=== PATIENT | male | born 1960 | race Two or more races ===

== ENCOUNTER 2018-11-13 21:26 | Emergency (ER) | payer OTHER ==
[~2018-11-13] VITALS: Ht 175.3 cm; Wt 71.2 kg
[~2018-11-13 21:26] MED LIST: ALTACE5 MG; BRILINTA60 MG; HYZAAR 100-121 UDTAB; LIPITOR20 MG; NORVASC5 MG; PLAVIX75 MG; PREVACID30 MG
[2018-11-13] MEDS ORDERED: NORVASC5 MG (21:39)
[2018-11-13] MEDS ORDERED: ASPIR 8181 MG (21:39)
[2018-11-13] MEDS ORDERED: JANUVIA100 MG (21:40)
[2018-11-13] MEDS ORDERED: ZETIA10 MG (21:40)
== END 2018-11-13 23:28 | disposition home or self-care (01) ==
LOC: ER 21:26
DX: K06.8 Other specified disorders of gingiva and edentulous alveolar ridge (principal); T45.515A Adverse effect of anticoagulants, initial encounter; Y92.89 Other specified places as the place of occurrence of the external cause; Z98.818 Other dental procedure status

== ENCOUNTER 2023-07-09 19:33 | Emergency (ER) | payer OTHER ==
[~2023-07-09] VITALS: Ht 175.3 cm; Wt 81.6 kg
[~2023-07-09 19:33] MED LIST changes: +ASPIR 8181 MG; +JANUVIA100 MG; +ZETIA10 MG
[2023-07-09] MEDS ORDERED: METROPOLOL (19:42)
[2023-07-09] MEDS ORDERED: 0.9 % SODIUM CHLORIDE 1,000 ML IV SCH (19:50)
[2023-07-09] MEDS ORDERED: TAMSULOSIN HCL 0.4 MG CAP PO ONE (20:00)
[2023-07-09 20:09] LABS: HEMATOCRIT 39.1 % (39.0-48.0); MEAN CELL VOLUME 85.1 fL (80.0-100.00); MEAN CORPUSCULAR HEMOGLOBIN 28.3 pg (27.00-32.0); MEAN CORPUSCULAR HGB CONC 33.2 g/dl (32.0-36.0); PLATELET COUNT 249 K/uL (150-450); RED BLOOD COUNT 4.59 M/uL (4.00-6.00); RED CELL DISTRIBUTION WIDTH 14.5 % (11.5-14.5)
[2023-07-09 20:10] LABS: URINE APPEARANCE Turbid; URINE BILIRRUBIN Small (NEGATIVE); URINE BLOOD Large; URINE COLOR Red; URINE GLUCOSE Negative (NEGATIVE); URINE LEUKOCYTE Moderate; URINE NITRATE Negative; URINE PROTEIN 30 (NEGATIVE); URINE UROBILINOGEN 0.2 E.U./dl
[2023-07-09 20:11] LABS: URINE EPITHELIAL CELLS 28.9 uL (0.0-38.8); URINE WBC 293.7 uL (0.0-23.2)
[2023-07-09 20:29] LABS: CALCIUM 9.8 mg/dL (8.5-10.1); CREATININE SERUM 1.22 mg/dL (0.70-1.30); GFR 59.8; POTASSIUM 3.69 mEq/L (3.5-5.1)
[2023-07-09 20:29] LABS: URINE RBC > 10558.9 uL (0.0-20.8)
== END 2023-07-09 23:54 | disposition home or self-care (01) ==
LOC: ER
PROVIDERS: Emergency Medicine
DX: R31.9 Hematuria, unspecified (principal); I10 Essential (primary) hypertension; E11.9 Type 2 diabetes mellitus without complications
CPT/HCPCS: 36415; 74176; 96365; 96366; 99284; J7030

== ENCOUNTER 2024-08-25 00:56 | Emergency (ER) | payer OTHER ==
[~2024-08-25] VITALS: Ht 175.3 cm; Wt 83.9 kg
[~2024-08-25 00:56] MED LIST changes: +METROPOLOL
[2024-08-25] MEDS ORDERED: TAMS0.4C PO (01:11)
[2024-08-25] MEDS ORDERED: COZAAR50 MG PO (01:11)
[2024-08-25] MEDS ORDERED: TRADJENTA5 MG PO (01:12)
[2024-08-25] MEDS ORDERED: TOPROL XL25 M1 PO (01:12)
[2024-08-25 01:13] VITALS: BP 152/86; O2SAT 98
[2024-08-25] MEDS ORDERED: CEFAZOLIN SODIUM 1,000 MG VIAL IM STA (02:38)
[2024-08-25] MEDS ORDERED: TETANUS & DIPHTHERIA TOX,ADULT 0.5 ML VIAL IM STA (02:38)
[2024-08-25] MEDS ORDERED: CEFAZOLIN SODIUM 1,000 MG VIAL ONE (02:56)
== END 2024-08-25 03:32 | disposition home or self-care (01) ==
LOC: ER 00:57
DX: S61.219A Laceration without foreign body of unspecified finger without damage to nail, initial encounter (principal); X58.XXXA Exposure to other specified factors, initial encounter; Y93.89 Activity, other specified; Y92.89 Other specified places as the place of occurrence of the external cause; Y99.8 Other external cause status
CPT/HCPCS: 12001; 90471; 90714; J1670

== ENCOUNTER → 2024-09-03 | Emergency (ER) | payer OTHER ==
[~2024-09-03] VITALS: Ht 175.3 cm; Wt 83.9 kg
[~2024-09-03] MED LIST changes: +COZAAR50 MG PO; +TAMS0.4C PO; +TOPROL XL25 M1 PO; +TRADJENTA5 MG PO
[2024-09-03 17:31] VITALS: BP 160/84; O2SAT 99
== END | disposition home or self-care (01) ==
LOC: ER 16:28
DX: Z48.02 Encounter for removal of sutures (principal)

== ENCOUNTER 2025-02-17 10:07 | Outpatient (CLI) | payer OTHER | END 2025-02-17 10:11 | disposition home or self-care (01) | LOC: RAD 10:07 | PROVIDERS: ATTEND Internal Medicine Cardiovascular Disease | DX: I10 Essential (primary) hypertension (principal) ==

== ENCOUNTER 2025-04-22 13:28 | Emergency (ER) | payer OTHER ==
[~2025-04-22] VITALS: Ht 175.3 cm; Wt 82.6 kg
[2025-04-22] MEDS ORDERED: KETOROLAC TROMETHAMINE 30 MG VIAL IM ONE (15:15)
[2025-04-22] MEDS ORDERED: KETOROLAC TROMETHAMINE 30 MG VIAL ONE (15:24)
[2025-04-22 15:59] LABS: BASO % 0.7 % (0.1-1.2); EOS # 0.11 (0.04-0.54); EOS % 1.0 % (0.7-7.0); LYMPH # 1.49 (1.18-3.74); LYMPH % 13.4 % (19.3-53.1); MEAN PLATELET VOLUME 9.80 fl (9.4-12.4); MONO # 0.64 (0.24-0.82); MONO % 5.7 % (4.7-12.5); NEUT # 8.82 (1.56-6.13); NEUT % 79.0 % (34.0-71.1); RED CELL DISTRIBUTION WIDTH 13.6 % (11.6-14.4)
[2025-04-22 16:15] LABS: ALT/SGPT 60.0 U/L (12-78); AST/SGOT 32.0 U/L (15-37); BILIRUBIN TOTAL 0.49 mg/dL (0.3-1.2); BUN CREA RATIO 15.0 (7.0-25.0); CREATININE SERUM 1.04 mg/dL (0.70-1.30); GFR 71.45; GLOBULINA 4.3 G/DL (2.4-3.5); GLUCOSE FASTING 107.0 mg/dL (65-100); OSMOLALITY SERUM 285.0 MOSM/KG (275-295)
== END 2025-04-22 22:21 | disposition home or self-care (01) ==
LOC: ER 13:29
PROVIDERS: General Practice
DX: S82.292A Other fracture of shaft of left tibia, initial encounter for closed fracture (principal); W19.XXXA Unspecified fall, initial encounter; Y93.89 Activity, other specified; Y92.89 Other specified places as the place of occurrence of the external cause; Y99.8 Other external cause status; I10 Essential (primary) hypertension; E11.9 Type 2 diabetes mellitus without complications
CPT/HCPCS: 36415; 73610; 96372; 99283; J1885

== ENCOUNTER 2025-05-03 05:23 | Day surgery (SDC) | payer OTHER ==
[2025-04-29 09:36] LABS: BASO % 0.7 % (0.1-1.2); EOS # 0.12 (0.04-0.54); EOS % 1.1 % (0.7-7.0); LYMPH # 1.67 (1.18-3.74); LYMPH % 15.1 % (19.3-53.1); MEAN PLATELET VOLUME 9.70 fl (9.4-12.4); MONO # 1.06 (0.24-0.82); MONO % 9.6 % (4.7-12.5); NEUT # 8.10 (1.56-6.13); NEUT % 73.2 % (34.0-71.1); RED CELL DISTRIBUTION WIDTH 13.8 % (11.6-14.4)
[2025-04-29 09:56] LABS: URINE APPEARANCE Clear; URINE BILIRRUBIN Negative (NEGATIVE); URINE BLOOD Trace; URINE COLOR Yellow; URINE GLUCOSE Negative (NEGATIVE); URINE KETONE Negative (NEGATIVE); URINE LEUKOCYTE Negative; URINE NITRATE Negative; URINE PROTEIN Trace (NEGATIVE); URINE UROBILINOGEN 1.0 E.U./dl
[2025-04-29 09:57] LABS: URINE BACTERIA 19.4 uL (0.0-1933); URINE RBC 24.9 uL (0.0-20.8); URINE WBC 3.6 uL (0.0-23.2)
[2025-04-29 10:00] LABS: URINE CAST 0.00 uL (0.0-1.40); URINE EPITHELIAL CELLS 1.3 uL (0.0-38.8)
[2025-04-29 10:02] LABS: COL EPI 93 SECONDS (82-175)
[2025-04-29 10:06] LABS: INR 0.97
[2025-04-29 10:12] VITALS: BP 179/82
[2025-04-29 10:38] LABS: ALT/SGPT 52.0 U/L (12-78); AST/SGOT 25.0 U/L (15-37); BILIRUBIN TOTAL 0.9 mg/dL (0.3-1.2); BUN CREA RATIO 18.0 (7.0-25.0); CREATININE SERUM 0.83 mg/dL (0.70-1.30); GFR 92.69; GLOBULINA 4.2 G/DL (2.4-3.5); GLUCOSE FASTING 114.0 mg/dL (65-100); OSMOLALITY SERUM 287.0 MOSM/KG (275-295)
[~2025-05-03] VITALS: Ht 175.3 cm; Wt 83.0 kg
[2025-05-03] MEDS ORDERED: CEFAZOLIN SODIUM 1,000 MG VIAL ONE (06:09)
[2025-05-03] MEDS ORDERED: KETOROLAC TROMETHAMINE 30 MG VIAL ONE (07:17)
[2025-05-03] MEDS ORDERED: LIDOCAINE HCL 1%/EPINEPHRINE 20ML VIAL IJ ONE (07:18)
[2025-05-03] MEDS ORDERED: EPINEPHRINE HCL/PF 1 MG/ML AMPUL ONE (07:18)
[2025-05-03] MEDS ORDERED: BUPIVACAINE HCL/MPF 0.5% 30ML VIAL ONE (07:18)
== END 2025-05-03 12:50 | disposition home or self-care (01) ==
LOC: CIR.AMB 05:23
PROVIDERS: ATTEND Orthopaedic Surgery
DX: S82.845A Nondisplaced bimalleolar fracture of left lower leg, initial encounter for closed fracture (principal)
CPT/HCPCS: 27814; L8699